=== PATIENT | female | born 1960 ===

== ENCOUNTER 2023-06-13 19:12 | Emergency (ER) | payer OTHER ==
[~2023-06-13] VITALS: Ht 177.8 cm; Wt 94.1 kg
[2023-06-13 19:48] VITALS: BP 155/73; PULSE 80; RESP 16; TEMP 98.4
[2023-06-13 20:57] VITALS: O2SAT 96
[2023-06-13] MEDS: KETOROLAC TROMETH 30 MG/ML 1ML VIAL IM ONE (21:28)
== END 2023-06-13 21:42 | disposition home or self-care (01) ==
LOC: ER 19:12
DX: M25.561 Pain in right knee (principal); Z88.0 Allergy status to penicillin; Z88.6 Allergy status to analgesic agent; Z88.2 Allergy status to sulfonamides
CPT/HCPCS: 96372; 99283; J1885